=== PATIENT | male | born 1975 | race Caucasian/White ===

== ENCOUNTER 2018-03-26 14:06 | Emergency (ER) | payer BC ==
[~2018-03-26] VITALS: Ht 172.7 cm; Wt 95.3 kg
[2018-03-26] MEDS ORDERED: [UNRECOGNIZED DRUG - REMARK] TOP (14:19)
[2018-03-26] MEDS ORDERED: TERBINAFINE HC250 MG PO (15:29)
[2018-03-26] MEDS ORDERED: HYDROCODONE-AP1 EAC6 PO (15:34)
[2018-03-26] MEDS ORDERED: MEDROLDOSEPACK PO (15:34)
[2018-03-26] MEDS ORDERED: NABUMETONE 750750 M1 PO (15:34)
[2018-03-26 15:45] VITALS: BP 119/79
== END 2018-03-26 15:47 | disposition home or self-care (01) ==
LOC: M.ERS 14:06
DX: M54.16 Radiculopathy, lumbar region (principal)